=== PATIENT | female | born 2000 | race Two or more races ===

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

== ENCOUNTER 2019-05-31 10:48 | Emergency (ER) | payer MEDICAID ==
[~2019-05-31] VITALS: Ht 162.6 cm; Wt 84.8 kg
[~2019-05-31 10:48] MED LIST: NKM; PEPCID20 MG ORAL
[2019-05-31 10:53] VITALS: BP 130/79
--- NOTE | 2019-05-31 10:55 | NUR ---
ED Nurse Note: Pt came in due to right eye pain and pressure that radiates to her head since x 2 days. Denies N/V. AAO x4 and ambulatory.
[2019-05-31] MEDS ORDERED: NKM (10:56)
[2019-05-31] MEDS ORDERED: EPINASTINE HCL5 ML RIGHT EYE (11:19)
[2019-05-31] MEDS ORDERED: IBUPROFEN600 MG ORAL (11:19)
[2019-05-31 11:22] VITALS: BP 127/80
--- NOTE | 2019-05-31 11:22 | NUR ---
ER DISCHARGE NOTE: Patient is cleared to be discharged per ERMD, pt is aox4, on room air, with stable vital signs. pt was given dc and prescription instructions, pt was able to verbalize understanding, pt id band removed without complications. pt is able to ambulate with steady gait. pt took all belongings.
--- NOTE | 2019-06-01 17:18 | Emergency Room Report ---
History of Present Illness General Chief Complaint: Eye Problems Source: Patient Present Illness HPI 18-year-old female presents ED for evaluation. Complaining of pain to the right eye. Started 2 days ago notes pain behind the right eye, dull, 5 out of 10, pressure, nonradiating. Denies photophobia or blurry vision. Denies nausea or vomiting. Denies neck stiffness. States she noticed some swelling around the eye. Denies any change in visual acuity. Denies sick contacts or recent travel. No other aggravating relieving factors. Denies any other associated symptoms Allergies: Coded Allergies: ACETAMINOPHEN (Verified Allergy, Unknown, 06/08/17) SWOLLEN LIPS Patient History Past Medical History: none Past Surgical History: none Pertinent Family History: none Social History: Denies: smoking, alcohol use, drug use Last Menstrual Period: 05/17/19 Now: No Immunizations: UTD Reviewed Nursing Documentation: PMH: Agreed; PSxH: Agreed Nursing Documentation-PMH Past Medical History: No Stated History Review of Systems All Other Systems: negative except mentioned in HPI Physical Exam Vital Signs Date Time Temp Pulse Resp B/P (MAP) Pulse Ox O2 Delivery O2 Flow Rate FiO2 05/31/19 10:53 99.0 104 20 130/79 98 Room Air Sp02 EP Interpretation: reviewed, normal General Appearance: no apparent distress, alert, GCS 15, non-toxic Head: normocephalic Eyes: right eye other - swelling to inferior periorbital area; bilateral eye normal inspection, bilateral eye PERRL, bilateral eye EOMI, bilateral eye visual acuity ENT: normal ENT inspection Neck: normal inspection Respiratory: normal inspection Cardiovascular #1: normal inspection Gastrointestinal: normal inspection Rectal: deferred Genitourinary: no CVA tenderness Musculoskeletal: normal inspection Neurologic: alert, oriented x3, responsive, motor strength/tone normal, sensory intact, speech normal Psychiatric: normal inspection Skin: palpation normal Lymphatic: normal inspection Medical Decision Making Diagnostic Impression: Primary Impression: Eye pain Qualified Codes: H57.11 - Ocular pain, right eye ER Course Hospital Course 18 yo F presents with pain behind R eye. swelling around eye Differential diagnoses include: conjunctivitis, traumatic iritis, foreign body, corneal abrasion Clinical course Patient placed on stretcher. After initial history physical exam reveals female in no acute distress. There is no scleral injection. No photophobia, visual acuity intact. Pupils equally reactive. No discharge. Extraocular movements intact. No pain. No erythema or induration surrounding the eye. Minimal swelling to the inferior periorbital area I discussed findings with patient. Differential includes allergic conjunctivitis versus migraine. No focal deficits. Will discharge to home with pain meds and topical antihistamine. Does not have a PMD. Will provide referrals Diagnosis - eye pain Stable and discharged to home with prescription for motrin, epinastine drops. Followup with PMD/Optho. Return to ED if symptoms recur or worsen Last Vital Signs Date Time Temp Pulse Resp B/P (MAP) Pulse Ox O2 Delivery O2 Flow Rate FiO2 05/31/19 11:22 98.5 1 16 127/80 100 Room Air Status: improved Disposition: HOME, SELF-CARE Condition: Stable Scripts Ibuprofen* (MOTRIN*) 600 Mg Tablet 600 MG ORAL Q8H PRN for For Pain, #30 TAB 0 Refills Prov: Woo García MD 05/31/19 Epinastine Hcl (EPINASTINE HCL) 5 Ml Drops 1 DROP RIGHT EYE QID for 7 Days, ML Prov: Woo García MD 05/31/19 Referrals: [facility]ERT[facility],REFERRING (PCP) [facility] Patient Instructions: Allergic Conjunctivitis, [id number] Woo García MD Jun 01, 2019 17:18
== END 2019-05-31 11:22 | disposition home or self-care (01) ==
LOC: EMR 11:10
DX: H57.11 Ocular pain, right eye (principal); Z88.6 Allergy status to analgesic agent
CPT/HCPCS: 99282